=== PATIENT | female | born 2000 | race Asian ===

== ENCOUNTER 2022-09-16 18:00 | Emergency (ER) | payer BC ==
[~2022-09-16] VITALS: Ht 152.4 cm; Wt 59.4 kg
[2022-09-16 18:14] VITALS: BP_SYST 126; PULSE 88; RESP 18; TEMP 98; O2SAT 98
[2022-09-16] MEDS ORDERED: KETOROLAC TROMETHAMINE 30 MG VIAL IVP ONE (18:30)
[2022-09-16] MEDS ORDERED: NACL 0.9% 1,000 ML IV ONE (18:30)
[2022-09-16] MEDS ORDERED: ONDANSETRON HCL 4 MG/2 ML VIAL IVP ONE (18:30)
[2022-09-16] MEDS ORDERED: PANTOPRAZOLE SODIUM 40 MG/VIAL (PROTONIX) IVP ONE (18:30)
[2022-09-16 19:05] LABS: BASOPHILS % (AUTO) 0.3 % (0.0-2.0); EOSINOPHILS % (AUTO) 0.2 % (0.0-4.0); HEMATOCRIT 45.7 % (36-48); HEMOGLOBIN 15.1 g/dL (12.0-16.0); LYMPHOCYTES # (AUTO) 1.1 K/uL (1.0-5.5); LYMPHOCYTES % (AUTO) 7.7 % (20.5-51.5); MEAN CORPUSCULAR HEMOGLOBIN 29 pg (27-31); MEAN CORPUSCULAR HGB CONC 33 % (32-36); MEAN CORPUSCULAR VOLUME 89 fL (79.0-98.0); MONOCYTES # (AUTO) 0.7 K/uL (0.0-1.0); MONOCYTES % (AUTO) 4.6 % (1.7-9.3); NEUTROPHILS # (AUTO) 12.7 K/uL (1.8-7.7); NEUTROPHILS % (AUTO) 87.2 % (40.0-70.0); PLATELET COUNT (AUTO) 248 K/uL (130-430); RED BLOOD CELL COUNT(AUTO) 5.16 MIL/uL (4.2-6.2); RED CELL DISTRIBUTION WIDTH 13.1 % (9.0-15.0); WHITE BLOOD COUNT (AUTO) 14.5 K/uL (4.8-10.8)
[2022-09-16 19:14] LABS: CREATININE 0.64 mg/dL (0.55-1.30)
[2022-09-16 19:18] LABS: ALBUMIN 4.4 g/dL (3.4-4.8); TOTAL BILIRUBIN 0.6 mg/dL (0.0-1.0)
[2022-09-16 19:32] LABS: BILIRUBIN,URINE NEGATIVE (NEGATIVE); COLOR,URINE YELLOW (YELLOW); GLUCOSE,URINE NEGATIVE (NEGATIVE); KETONES,URINE 2+ (NEGATIVE); LEUKOCYTE ESTERASE ,URINE TRACE (NEGATIVE); NITRITE, URINE NEGATIVE (NEGATIVE); PH,URINE 5.5 (5.0-8.0); PROTEIN URINE NEGATIVE (NEGATIVE); UROBILINOGEN,URINE 0.2 (0.2-1.0)
[2022-09-16 19:34] LABS: BLOOD, URINE TRACE (NEGATIVE); CLARITY/URINE HAZY (CLEAR)
[2022-09-16 19:38] LABS: BACTERIA,URINE FEW /HPF (None Seen); RBC,URINE 0-3 /HPF (0-3)
[2022-09-16 19:39] LABS: MUCUS,URINE 1+ /LPF (None Seen)
[2022-09-16] MEDS ORDERED: MAG-AL HYDROX/SIMETH 30 ML UDC PO ONE (20:00)
[2022-09-16] MEDS ORDERED: DICYCLOMINE HCL 10 MG/5 ML SOLUTION PO ONE (20:00)
[2022-09-16] MEDS ORDERED: LIDOCAINE VISCOUS 2%, 15 ML UDC MM ONE (20:00)
[2022-09-16] MEDS ORDERED: SULFAMETHOXAZOLE/TRIMETHOPR DS 1 TABLET PO ONE (20:45)
[2022-09-16] MEDS ORDERED: ONDA-8 TL (20:48)
[2022-09-16] MEDS ORDERED: OMEP40CA20 PO (20:48)
[2022-09-16] MEDS ORDERED: SULF1TAB48 PO (20:48)
[2022-09-16] MEDS ORDERED: LIDOCAINE VISCOUS 2%, 15 ML UDC ONE (20:54)
[2022-09-16 21:17] VITALS: BP_SYST 121; PULSE 72; RESP 16; TEMP 97.7; O2SAT 100
== END 2022-09-16 21:16 | disposition home or self-care (01) ==
LOC: SED 18:00
DX: N39.0 Urinary tract infection, site not specified (principal); A08.4 Viral intestinal infection, unspecified; R10.13 Epigastric pain; R11.0 Nausea; R19.7 Diarrhea, unspecified; Z79.899 Other long term (current) drug therapy
CPT/HCPCS: 99285; 96374; 76705; 96375; 96361; 80053; 81000; 84703; 83690; 85025; 36415; 81025; J1885; J2405; C9113; J7030; J2001